=== PATIENT | male | born 1990 | race Two or more races ===

== ENCOUNTER 2017-05-11 16:01 | Emergency (ER) | payer OTHER ==
[~2017-05-11] VITALS: Ht 172.7 cm; Wt 45.4 kg
--- NOTE | ~2017-05-11 | CT4 ---
[facility] A Service of [facility] RADIOLOGY TEXT RESULTS PATIENT: MAURA HENAO LOCATION: [facility] : [birth year] UNIT #: [id number] AGE: [address]: Murtaza Meneses MD SEX: M ORDER DR: [id number] [facility] [address] [place], [place] [address] [id number] E MR#: [id number] Acc #: [id number] NAME: MAURA HENAO : 1990 SEX: M STUDY DATE/TIME: 05/11/2017 18:31 UNIT: [facility] ROOM: STUDY DESCRIPTION: CT Abd and Pelv Wo Cont Attending Physician: Murtaza Meneses M.D. Ordering Physician: Ed Darryn Mart M.D. Primary Care Physician: No Primary Care Physician MEDICAL IMAGING REPORT This report is preliminary unless electronic signature is present EXAM CT abdomen and pelvis without contrast, 05/11/2017. HISTORY 27-year-old male with vomiting beginning today. History of small bowel obstruction. Order requests evaluation for possible ileus. COMPARISON None. TECHNIQUE Helical scan performed through the abdomen and pelvis without IV contrast. Oral contrast only was given. Coronal and sagittal reformatted images. This CT exam was performed with one or more of the following radiation dose reduction techniques: automatic exposure control, adjustment of mA and/or kV according to patient size, and iterative reconstruction. FINDINGS Examination is limited by motion artifact. Allowing for this, the visualized lung bases are clear. Examination is limited given the lack of IV contrast. There are multiple gas-distended loops of small bowel and colon. Findings could represent moderate to high-grade ileus. Percutaneous gastrojejunal feeding tube noted. The liver, spleen, pancreas, gallbladder, both adrenal glands, and both kidneys are grossly unremarkable. Abdominal aorta normal in course and caliber. Urinary bladder and prostate gland are unremarkable. No free pelvic fluid. No acute bony abnormality. IMPRESSION 1. Limited examination secondary to motion artifact and lack of IV [facility] A Service of [facility] RADIOLOGY TEXT RESULTS PATIENT: MUARA HENAO LOCATION: [facility] : [birth year] UNIT #: [id number] AGE: [address]: Murtaza Meneses MD SEX: M ORDER DR: contrast. 2. Multiple gas-distended loops of small bowel and colon extending to the rectum. Ileus is not excluded. 3. No other acute abdominal or pelvic findings. Dictated by... Jeronimo Hassan M.D. THIS IS AN ELECTRONICALLY VERIFIED REPORT Jeronimo Hassan M.D. at 05/12/2017 10:17 AM BEVERLY/angela TD: 05/12/2017 06:36 JOB #: [id number] MEDICAL IMAGING REPORT Page 1 of 1 COPY
[~2017-05-11 16:01] MED LIST: ABILIFY10 MG GT; ABILIFY30 MG GT; ACETAMIN-CODE12.5 ML GT; ALBUTEROL0.83 MG/ML INH; ATIVAN GT; ATIVAN0.5 M1 GT; CHRONULAC10 GM/15 M GT; DEPAKENE S50 MG/ML S GT; DIASTAT10 MG PR; GEODON20 MG GT; HEMOCYTE324 MG GT; KEPPRA250 MG GT; LABETALOL HCL100 MG GT; LOPROX120 ML TOP; MELATONIN1 MG GT; MIRALAX17 G2 GT; MIRALAX17 GM GT; PEPCID AC20 M2 GT; SENOKOT60 M1 GT; SINGULAIR GT; ZINC SULFATE220 M1 GT
[2017-05-11 17:02] LABS: BASOPHIL% 0.5 % (0-2.5); EOSINOPHIL# 0.1 X10e3 (0-0.7); EOSINOPHIL% 1.5 % (0.0-7.0); HEMATOCRIT 44.4 % (38.0-50.0); HEMOGLOBIN 14.3 gm/dL (13.0-16.0); LYMPHOCYTE# 1.2 X10e3 (1.0-3.5); LYMPHOCYTE% 30.1 % (17.0-45.0); MEAN CELL VOLUME 82.1 FL (83-96); MEAN CORPUSCULAR HEMOGLOBIN 26.3 PG (28-34); MEAN CORPUSCULAR HGB CONC 32.1 g/dL (30-36); MEAN PLATELET VOLUME 8.2 FL (6.5-11.5); MONOCYTE# 0.5 X10e3 (0-1.0); MONOCYTE% 13.5 % (3.0-12.0); NEUTROPHIL# 2.2 X10e3 (1.5-7.1); NEUTROPHIL% 54.4 % (40-75); PLATELET COUNT 305 X10e3 (140-420); RED BLOOD COUNT 5.42 X10e (3.90-5.60)
[2017-05-11 17:03] LABS: DIFF IND NO
[2017-05-11 17:29] LABS: ALBUMIN SERUM 4.4 g/dL (3.5-5.0); BILIRUBIN, DIRECT 0.1 mg/dL (0.0-0.2); BILIRUBIN,INDIRECT 0.5 mg/dL (0.0-0.9); BILIRUBIN,TOTAL 0.6 mg/dL (0.2-2.0); CALCIUM SERUM 9.5 mg/dL (8.4-10.2); CREATININE SERUM 0.7 mg/dL (0.6-1.4); GLOM FILT RATE Estimated 129.4 mL/min (>60); POTASSIUM 3.9 mmol/L (3.5-5.1); PROTEIN TOTAL SERUM 7.1 g/dL (6.0-8.3)
== END 2017-05-11 21:42 | disposition home or self-care (01) ==
LOC: CED 16:01
PROVIDERS: Emergency Medicine
DX: K56.7 Ileus, unspecified (principal); Z88.8 Allergy status to other drugs, medicaments and biological substances; Z79.899 Other long term (current) drug therapy
CPT/HCPCS: 36415; 74176; 80048; 80076; 83690; 85025; 99284